=== PATIENT | male | born 1970 | race Hispanic/Latino ===

== ENCOUNTER 2017-08-28 10:41 | Emergency (ER) | payer OTHER ==
[2017-08-28 10:41] VITALS: BMI 35.9
[2017-08-28 10:47] VITALS: RESP 20; O2SAT 95
--- NOTE | 2017-08-28 12:01 | CT ---
PROCEDURE: CT Abdomen and Pelvis without intravenous contrast HISTORY: Bilateral flank pain COMPARISON: 09/24/2015. TECHNIQUE: CT scan of the abdomen and pelvis was performed without administration of intravenous contrast. Oral contrast was not administered. Coronal and sagittal reformatted images were obtained. Radiation dose: Total exam DLP = 1174.44 mGy-cm. This CT exam was performed using one or more of the following dose reduction techniques: Automated exposure control, adjustment of the mA and/or kV according to patient size, and/or use of iterative reconstruction technique. FINDINGS: LOWER THORAX: There is dependent atelectasis in the lung bases and mild paraseptal emphysema. LIVER: Normal in size. No gross lesion or ductal dilatation. GALLBLADDER AND BILE DUCTS: Surgically absent. PANCREAS: Normal in size. No gross lesion or ductal dilatation. SPLEEN: Borderline splenomegaly. ADRENALS: No discrete nodule in the right adrenal gland. Stable 2.4 cm adenoma in the left adrenal gland. KIDNEYS AND URETERS: Both kidneys are normal in size without nephrolithiasis or hydronephrosis. VASCULATURE: No aortic aneurysm. BOWEL: The small bowel loops are normal in caliber. There is mild sigmoid diverticulosis without CT evidence for acute diverticulitis. No bowel dilatation or obstruction. APPENDIX: Normal appendix. PERITONEUM: No free fluid. No free air. LYMPH NODES: No enlarged lymph nodes. BLADDER: Decompressed. REPRODUCTIVE: Unremarkable. BONES: No acute fracture. Within normal limits for the patient's age. OTHER FINDINGS: There are bilateral small fat containing inguinal hernias. There is a small sliding hiatal hernia. IMPRESSION: 1. No evidence of hydronephrosis, nephrolithiasis or obstructive uropathy. 2. Mild sigmoid diverticulosis without CT evidence for acute diverticulitis.
[2017-08-28 12:07] LABS: BASO # 0.1 K/uL (0.0-0.2); BASO % 0.6 % (0.0-2.0); EOS % 0.3 % (0.0-4.0); HEMOGLOBIN 15.7 g/dL (12.0-18.0); LYMPH # 1.7 K/uL (1.0-4.3); LYMPH % 11.3 % (20.0-40.0); MEAN CELL VOLUME 89.4 fl (80.0-94.0); MEAN CORPUSCULAR HEMOGLOBIN 30.4 pg (27.0-31.0); MEAN PLATELET VOLUME 8.5 fl (7.2-11.7); MONO # 1.5 K/uL (0.0-0.8); MONO % 10.4 % (0.0-10.0); NEUT # 11.3 K/uL (1.8-7.0); NEUT % 77.4 % (50.0-75.0); NRBC % 0.1 % (0.0-0.0); RBC 5.18 Mil/uL (4.40-5.90); RED CELL DISTRIBUTION WIDTH 13.2 % (11.5-14.5); WHITE BLOOD COUNT 14.6 K/uL (4.8-10.8)
[2017-08-28] MEDS: Sodium Chloride 0.9% 1,000 ML IV STA (12:16)
[2017-08-28 12:22] LABS: ALB/GLOB RATIO 1.2 (1.0-2.1); ALBUMIN 4.5 g/dL (3.5-5.0); ALT/SGPT 62 U/L (21-72); AST/SGOT 40 U/L (17-59); BLOOD UREA NITROGEN 16 mg/dl (9-20); CALCIUM 9.3 mg/dL (8.4-10.2); GFR AFRICAN-AMERICAN > 60; GFR NON-AFRICAN AMERICAN > 60
[2017-08-28 13:12] LABS: SQUAMOUS EPITHIAL 1 /hpf (0-5); URINE BACTERIA FEW (<OCC); URINE BILIRUBIN NEGATIVE (NEGATIVE); URINE BLOOD LARGE (NEGATIVE); URINE CLARITY TURBID (Clear); URINE COLOR YELLOW (YELLOW); URINE GLUCOSE (UA) NEG (Normal); URINE LEUKOCYTE ESTERASE LARGE Leu/uL (Negative); URINE NITRATE POSITIVE (NEGATIVE); URINE PROTEIN 100 mg/dL (NEGATIVE); URINE UROBILINOGEN 0.2-1.0 mg/dL (0.2-1.0); WBC CLUMPS MANY /hpf
[2017-08-28] MEDS ORDERED: cefTRIAXone (Rocephin) 1 gm Inj ONE (13:49)
--- NOTE | 2017-08-28 14:27 | ED PDOC ---
HPI: Back Time Seen by Provider: 08/28/17 11:05 Chief Complaint (Nursing): Back Pain Chief Complaint (Provider): flank pain History Per: Patient History/Exam Limitations: no limitations Additional Complaint(s): 47yo M in ED fore mary of right flank pain intermittent x many months but worsened in past month prompting his ED visit. notes dysuria urinary freq/ urgency and dark color with burning. also admit o to mild abdominal pain Past Medical History Reviewed: Historical Data, Nursing Documentation, Vital Signs Vital Signs: Last Vital Signs Temp 100.7 F H 08/28/17 10:45 Pulse 107 H 08/28/17 10:45 Resp 20 08/28/17 10:45 BP 146/100 H 08/28/17 10:45 Pulse Ox 95 08/28/17 10:45 - Medical History PMH: Back Problems, HIV, HTN, Hypercholesterolemia Denies: Chronic Kidney Disease - Family History Family History: States: No Known Family Hx - Home Medications Home Medications: Ambulatory Orders Medication Instructions Recorded Aspirin [Aspirin Chewable] 81 mg PO DAILY #30 chew 07/28/16 Famotidine [Pepcid] 20 mg PO BID #60 tab 07/28/16 Lisinopril [Zestril] 20 mg PO DAILY #30 tab 07/28/16 Rosuvastatin Calcium [Crestor] 5 mg PO DAILY #30 tablet 07/28/16 Clindamycin [Cleocin] 300 mg PO TID #30 cap 08/28/17 - Allergies Allergies/Adverse Reactions: Allergies Allergy/AdvReac Type Severity Reaction Status Date / Time No Known Allergies Allergy Verified 03/28/16 13:36 Review of Systems ROS Statement: Except As Marked, All Systems Reviewed And Found Negative Constitutional: Positive for: Fever, Chills Gastrointestinal: Positive for: Abdominal Pain Musculoskeletal: Positive for: Back Pain Physical Exam - Reviewed Nursing Documentation Reviewed: Yes Vital Signs Reviewed: Yes - Physical Exam Appears: Positive for: Non-toxic, No Acute Distress, Uncomfortable Skin: Positive for: Normal Color, Warm, DRY Cardiovascular/Chest: Positive for: Regular Rate, Rhythm Respiratory: Positive for: CNT, Normal Breath Sounds Gastrointestinal/Abdominal: Positive for: Bowel Sounds, Soft, Tenderness (mild suprapubic) Back: Positive for: R CVA Tenderness Neurologic/Psych: Positive for: Alert, Oriented - Laboratory Results Result Diagrams: 08/28/17 12:00 08/28/17 12:00 - ECG O2 Sat by Pulse Oximetry: 95 - CT Scan/US ct scan Other Rad Studies (CT/US): Radiology Report Reviewed - Progress ED Course And Treament: Orders impression: Renal stone. Category Date Time Status ABD & PELVIS W/O PO OR IV CONT [CT] Stat CT 08/28/17 11:04 Completed COMP METABOLIC PANEL Stat Chem 08/28/17 12:00 Completed CBC (WITH DIFFERENTIAL) Stat KAVITA 08/28/17 12:00 Completed CHLAMYDIA/GC RNA,TMA Stat Lab 08/28/17 13:21 Ordered Ketorolac [Toradol] Med 08/28/17 12:08 Discontinued 30 mg .ROUTE .STK-MED ONE Ketorolac [Toradol] Med 08/28/17 11:04 Discontinued 30 mg IVP STAT STA Ondansetron [Zofran Inj] Med 08/28/17 12:08 Discontinued 4 mg .ROUTE .STK-MED ONE Ondansetron [Zofran Inj] Med 08/28/17 11:04 Discontinued 4 mg IVP STAT STA Sodium Chloride 0.9% 1,000 ml Med 08/28/17 11:04 Discontinued IV 1,000 mls/hr cefTRIAXone [Rocephin] Med 08/28/17 13:49 Discontinued 1 gm .ROUTE .STK-MED ONE cefTRIAXone [Rocephin] 1 gm Med 08/28/17 13:20 Discontinued Sodium Chloride 0.9% 100 ml IVPB STAT URINE CULTURE Stat Micro 08/28/17 12:50 Received IV Insertion (Saline Lock) ONCE NURSING 08/28/17 11:04 Active URINALYSIS Stat URINALYSIS 08/28/17 12:50 Completed Re-evaluation Time: 14:28 Condition: Improved Medical Decision Making Medical Decision Making: pt on labs shows pylonephritis given IV abx in ED and will be d/c with clindamycin with immediate f/u with pmd VS improved pt looks well. Disposition - Clinical Impression Clinical Impression: Pyelonephritis, Screen for STD (sexually transmitted disease) - Patient ED Disposition Is Patient to be Admitted: No Counseled Patient/Family Regarding: Studies Performed, Diagnosis, Need For Followup, Rx Given - Disposition Disposition: Routine/Home Disposition Time: 14:34 Condition: STABLE Prescriptions: Clindamycin [Cleocin] 300 mg PO TID #30 cap Instructions: Urinary Tract Infection in Men (GEN)
[2017-08-28 15:17] VITALS: BP 150/88; PULSE 85; TEMP 98.8
== END 2017-08-28 15:37 | disposition home or self-care (01) ==
LOC: H.ER 10:41
DX: N39.0 Urinary tract infection, site not specified (principal); N10 Acute pyelonephritis; Z11.3 Encounter for screening for infections with a predominantly sexual mode of transmission
CPT/HCPCS: 74176; 80053; 81003; 85025; 87086; 87181; 87491; 87591; 96361; 96365; 96375; 99283; J0696; J1885; J2405; J7040

== ENCOUNTER 2017-09-19 19:04 | Inpatient (IN) | payer SELFPAY, MEDICAID ==
[2017-09-19 19:04] VITALS: BMI 35.9
[2017-09-19] MEDS ORDERED: Sodium Chloride 0.9% 1,000 ML IV STA ×2 (20:02→22:04)
--- NOTE | 2017-09-19 20:30 | ED PDOC ---
HPI: Back Time Seen by Provider: 09/19/17 19:54 Chief Complaint (Nursing): Fever History Per: Patient History/Exam Limitations: no limitations Onset/Duration Of Symptoms: Days Current Symptoms Are (Timing): Still Present Severity: Moderate Additional Complaint(s): Hx of HTN, HLD, pyelonephriits p/w back pain, fever, dysuria x 3 day. Patient states he finished a course of clindamycin yesterday but the fevers and back pain are persisting, as well as the dysuria. States it feels similarly to prior kidney infections. Past Medical History Vital Signs: Last Vital Signs Temp 102.2 F H 09/19/17 19:46 Pulse 117 H 09/19/17 19:46 Resp 20 09/19/17 19:46 BP 190/109 H 09/19/17 19:46 Pulse Ox 98 09/19/17 19:46 - Medical History PMH: Back Problems, HIV, HTN, Hypercholesterolemia Denies: Chronic Kidney Disease - Family History Family History: States: Unknown Family Hx - Home Medications Home Medications: Ambulatory Orders Medication Instructions Recorded Famotidine [Pepcid] 20 mg PO BID #60 tab 07/28/16 Lisinopril [Zestril] 20 mg PO DAILY #30 tab 07/28/16 Rosuvastatin Calcium [Crestor] 5 mg PO DAILY #30 tablet 07/28/16 - Allergies Allergies/Adverse Reactions: Allergies Allergy/AdvReac Type Severity Reaction Status Date / Time No Known Allergies Allergy Verified 03/28/16 13:36 Review of Systems ROS Statement: Except As Marked, All Systems Reviewed And Found Negative Constitutional: Positive for: Fever, Chills Gastrointestinal: Positive for: Nausea Genitourinary Male: Positive for: Dysuria Musculoskeletal: Positive for: Back Pain Physical Exam - Reviewed Nursing Documentation Reviewed: Yes Vital Signs Reviewed: Yes - Physical Exam Appears: Positive for: Well, Non-toxic, No Acute Distress Head Exam: Positive for: ATRAUMATIC, NORMAL INSPECTION, NORMOCEPHALIC Skin: Positive for: Normal Color, Warm, DRY Eye Exam: Positive for: EOMI, Normal appearance, PERRL ENT: Positive for: Normal ENT Inspection Neck: Positive for: Normal, Painless ROM Cardiovascular/Chest: Positive for: Regular Rate, Rhythm Respiratory: Positive for: CNT, Normal Breath Sounds Gastrointestinal/Abdominal: Positive for: Normal Exam, Bowel Sounds, Soft Back: Positive for: L CVA Tenderness, R CVA Tenderness Extremity: Positive for: Normal ROM Neurologic/Psych: Positive for: Alert, Oriented - Laboratory Results Result Diagrams: 09/19/17 20:32 09/19/17 20:32 - ECG O2 Sat by Pulse Oximetry: 98 Pulse Ox Interpretation: Normal Medical Decision Making Medical Decision Making: A/P: Pt. w/ hx of HTN, HLD, pyelo p/w fever and back pain -Patient just finished course of clinda and is still febrile with pain, is now outpatient failure of treatment for pyelo -will get labs, fliuds, septic workup -CT A/P w/ contrast to eval for pyelo -will require inpatient admission given patient failed outpatient ABx therapy and has signs of sepsis Time: 22:42 CT A/P with Contrast FINDINGS: Lower thorax: No acute findings. ABDOMEN: Liver: Fatty infiltration. Gallbladder and bile ducts: Cholecystectomy. No significant ductal dilation. Pancreas: No ductal dilation. No mass. Spleen: No splenomegaly. Adrenals: Stable appearance of adrenal glands. Kidneys and ureters: Too small to characterize lesion within RIGHT kidney. No hydronephrosis. Stomach and bowel: Scattered diverticula within colon. No associated inflammatory stranding. No definite mural thickening. No obstruction. Appendix: Normal caliber. No inflammation. PELVIS: Bladder: Unremarkable. Reproductive: Unremarkable as visualized. ABDOMEN and PELVIS: Intraperitoneal space: No significant fluid collection. No free air. Bones/joints: No acute fracture. Soft tissues: Small LEFT inguinal hernia containing fat. Tiny umbilical hernia containing fat. Vasculature: Unremarkable. No aneurysm. Lymph nodes: No pathologically enlarged lymph nodes. IMPRESSION: 1. Diverticulosis without definite CT evidence of diverticulitis. 2. Incidental/non-acute findings are described above 2200 Patient with outpatient failure of UTI. Will admit for sepsis, UTI, and outpatient ABx failure. Dr. Magaña reports patient also has a hx of HIV. Disposition - Clinical Impression Clinical Impression: Fever, UTI (urinary tract infection), Sepsis - Patient ED Disposition Is Patient to be Admitted: Yes - Disposition Disposition Time: 22:00 Condition: SERIOUS
[2017-09-19 20:44] LABS: BASO # 0.1 K/uL (0.0-0.2); BASO % 0.8 % (0.0-2.0); EOS % 0.1 % (0.0-4.0); HEMOGLOBIN 15.1 g/dL (12.0-18.0); LYMPH # 1.4 K/uL (1.0-4.3); LYMPH % 7.8 % (20.0-40.0); MEAN CELL VOLUME 90.2 fl (80.0-94.0); MEAN CORPUSCULAR HEMOGLOBIN 29.8 pg (27.0-31.0); MEAN CORPUSCULAR HGB CONC 33.1 g/dL (33.0-37.0); MEAN PLATELET VOLUME 8.9 fl (7.2-11.7); MONO # 1.4 K/uL (0.0-0.8); MONO % 7.7 % (0.0-10.0); NEUT # 15.3 K/uL (1.8-7.0); NEUT % 83.6 % (50.0-75.0); NRBC % 0.1 % (0.0-0.0); PLATELET COUNT 185 K/uL (130-400); RBC 5.06 Mil/uL (4.40-5.90); WHITE BLOOD COUNT 18.4 K/uL (4.8-10.8)
[2017-09-19 21:10] LABS: VENOUS BLOOD GAS PCO2 38 mmHg (40-60); VENOUS BLOOD GAS PO2 60 mm/Hg (30-55); VENOUS BLOOD PH 7.43 (7.32-7.43)
[2017-09-19 21:11] LABS: ALB/GLOB RATIO 1.3 (1.0-2.1); ALBUMIN 4.3 g/dL (3.5-5.0); ALT/SGPT 72 U/L (21-72); AST/SGOT 50 U/L (17-59); BLOOD UREA NITROGEN 14 mg/dl (9-20); CALCIUM 9.4 mg/dL (8.4-10.2); GFR AFRICAN-AMERICAN > 60; GFR NON-AFRICAN AMERICAN > 60; LIPASE 89 U/L (23-300)
[2017-09-19 21:19] LABS: SQUAMOUS EPITHIAL < 1 /hpf (0-5); URINE BILIRUBIN NEGATIVE (NEGATIVE); URINE BLOOD SMALL (NEGATIVE); URINE CLARITY CLOUDY (Clear); URINE COLOR YELLOW (YELLOW); URINE GLUCOSE (UA) NEG (Normal); URINE HYALINE CAST 0-2 /hpf (0-2); URINE LEUKOCYTE ESTERASE TRACE Leu/uL (Negative); URINE NITRATE NEGATIVE (NEGATIVE); URINE PROTEIN 100 mg/dL (NEGATIVE); URINE UROBILINOGEN 0.2-1.0 mg/dL (0.2-1.0)
[2017-09-19] MEDS ORDERED: levoFLOXacin 750 mg in D5W 150 ML BAG IVPB STA (21:28)
[2017-09-19 21:36] LABS: BANDS 3 % (0-2); BASOPHIL 1 % (0-2); LYMPHOCYTE 11 % (20-50); MONOCYTE 8 % (0-10); NEUTROPHIL 77 % (42-75); PLATELET ESTIMATE NORMAL (NORMAL); TOTAL CELLS COUNTED 100
[2017-09-19 21:37] LABS: HYPOCHROMIC SLIGHT; LARGE PLATELETS PRESENT
[2017-09-19] MEDS ORDERED: levoFLOXacin 750 mg in D5W 750 MG/150 ML BAG IVPB STA (21:41)
[2017-09-19] MEDS ORDERED: Sodium Chloride 0.9% 50 ML IV ONE (22:09)
[2017-09-19] MEDS ORDERED: Iohexol 300 100 ML IJ ONE (22:09)
[2017-09-19] MEDS ORDERED: levoFLOXacin 750 mg in D5W 750 MG/150 ML BAG IVPB ONE (22:37)
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
[2017-09-20] MEDS ORDERED: Influenza Vaccine 18yr & older 0.5 ML/45 MCG SYR IM ONE (02:59)
[2017-09-20] MEDS: Piperacillin/Tazobact 3.375 GM in Sodium Chloride 0.9% 50 ML IVPB SCH ×4 (05:14→21:37)
[2017-09-20 06:19] LABS: ALB/GLOB RATIO 1.2 (1.0-2.1); ALBUMIN 4.1 g/dL (3.5-5.0); ALT/SGPT 60 U/L (21-72); AST/SGOT 44 U/L (17-59); BLOOD UREA NITROGEN 11 mg/dl (9-20); GFR AFRICAN-AMERICAN > 60; GFR NON-AFRICAN AMERICAN > 60
[2017-09-20 06:27] LABS: BASO % 0.2 % (0.0-2.0); EOS # 0.1 K/uL (0.0-0.7); EOS % 0.5 % (0.0-4.0); HEMOGLOBIN 15.4 g/dL (12.0-18.0); LYMPH # 1.3 K/uL (1.0-4.3); LYMPH % 9.4 % (20.0-40.0); MEAN CELL VOLUME 89.4 fl (80.0-94.0); MEAN CORPUSCULAR HEMOGLOBIN 30.3 pg (27.0-31.0); MEAN CORPUSCULAR HGB CONC 33.9 g/dL (33.0-37.0); MEAN PLATELET VOLUME 9.4 fl (7.2-11.7); MONO # 1.6 K/uL (0.0-0.8); NEUT # 11.3 K/uL (1.8-7.0); NEUT % 78.9 % (50.0-75.0); NRBC % 0.1 % (0.0-0.0); RBC 5.07 Mil/uL (4.40-5.90); RED CELL DISTRIBUTION WIDTH 14.1 % (11.5-14.5); WHITE BLOOD COUNT 14.3 K/uL (4.8-10.8)
[2017-09-20] MEDS ORDERED: Pneumococcal 23-Valent Vaccine IM ONE (06:30)
--- NOTE | 2017-09-20 11:19 | CARD ---
APPROVED REPORT EKG Measurement Heart [id number] <Conclusion> Sinus tachycardia with 1st degree AV block T wave abnormality, consider inferior ischemia Abnormal ECG
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
[2017-09-20] MEDS: Enoxaparin 40 mg Syringe SC SCH (12:10)
--- NOTE | 2017-09-20 13:22 | CP.PCM.PN ---
Subjective - Date & Time of Evaluation Date of Evaluation: 09/20/17 Time of Evaluation: 09:00 - Subjective Subjective: Pt seen and examined at bedside this AM. He was observed ambulating from the restroom to his bed. He states significant improvement his in symptoms. Decreased flank pain; Denies: cp/sob/n/v He states slight headache that his sharp in character. He reports headaches from frontal to occipital, described as nails to a coffin, 8/10, intermittent, blurred vision and bilateral lower extremity numbness. The neighboring patient reported that Charles will stop breathing for about one minute at night and suddenly awakens. No known official diagnosis. Objective - Vital Signs/Intake and Output Vital Signs (last 24 hours): Temp Pulse Resp BP Pulse Ox 98.5 F 92 H 18 153/91 H 97 09/20/17 12:00 09/20/17 12:00 09/20/17 12:00 09/20/17 12:00 09/20/17 12:00 - Medications Medications: Current Medications Acetaminophen (Tylenol 325mg Tab) 650 mg PO Q6 PRN PRN Reason: Fever >100.4 F Acetaminophen (Tylenol 325mg Tab) 650 mg PO Q6 PRN PRN Reason: Pain, Mild (1-3) Last Admin: 09/20/17 05:13 Dose: 650 mg Atorvastatin Calcium (Lipitor) 10 mg PO DAILY [facility] Last Admin: 09/20/17 08:30 Dose: 10 mg Enoxaparin Sodium (Lovenox) 40 mg SC DAILY [facility] PRN Reason: Protocol Last Admin: 09/20/17 12:10 Dose: 40 mg Hydromorphone HCl (Dilaudid) 0.5 mg IVP Q6H PRN PRN Reason: Pain, severe (8-10) Piperacillin Sod/Tazobactam (Sod 3.375 gm/ Sodium Chloride) 50 mls @ 50 mls/hr IVPB Q6 [facility] PRN Reason: Protocol Last Admin: 09/20/17 12:11 Dose: 50 mls/hr Ketorolac Tromethamine (Toradol) 30 mg IVP Q6 PRN PRN Reason: Pain, moderate (4-7) Last Admin: 09/20/17 12:06 Dose: 30 mg Lisinopril (Zestril) 20 mg PO DAILY [facility] Last Admin: 09/20/17 08:29 Dose: 20 mg Lisinopril (Zestril) 5 mg PO ONCE [facility] Ondansetron HCl (Zofran Inj) 4 mg IVP Q6 PRN PRN Reason: Nausea/Vomiting - Labs Labs: 09/20/17 04:52 09/20/17 04:52 - Constitutional Appears: Well, No Acute Distress - Head Exam Additional comments: Alopecia - Eye Exam Eye Exam: EOMI, Normal appearance - Neck Exam Neck Exam: Full ROM - Respiratory Exam Respiratory Exam: Clear to Ausculation Bilateral, NORMAL BREATHING PATTERN - Cardiovascular Exam Cardiovascular Exam: REGULAR RHYTHM, +S1, +S2 - GI/Abdominal Exam GI & Abdominal Exam: Soft, Normal Bowel Sounds - Extremities Exam Extremities Exam: Full ROM - Back Exam Back Exam: CVA tenderness (L). absent: CVA tenderness (R) - Neurological Exam Neurological Exam: Alert, Awake, CN II-XII Intact, Oriented x3. absent: Normal Gait Additional comments: chronic peripheral neuropathy altering his gait but ambulating without trouble. - Psychiatric Exam Psychiatric exam: Normal Affect, Normal Mood Assessment and Plan - Assessment and Plan (Free Text) Plan: 47 yo M with pmhx of HLD, GERD, peripheral neuropathy, hiv presented with pyelonephritis. 1) Pyelonephritis -persistent symptoms for the last 3 days, fever (resolved), dysuria (resolved), CVAT -recent UTI 05/19/18 treated with clindamycin; denies previous history of UTI or prostate abnormalities -Urine cx 05/19/18 Ecoli sensitive to Zosyn, Meropenem, Macrobid -UA (09/20/2017) hematuria, leukocyturia, nitrate neg, LE trace -CT Abd: Kidneys and ureters: Too small to characterize lesion within RIGHT kidney. No hydronephrosis. Diverticulosis without definite CT evidence of diverticulitis. -will treat with Zosyn 3.375 IV Q6h considering it was sensitive last urine cx; will consider an appropriate PO route in the future. -s/p levaquin x 1 dose ED -f/u Urine cx, gc/chlamydia, gram stain. 2) Sepsis SIRS(fever, tachycardia, leukocytosis)+Urine positive -BVG Lactate 2.3, lactic acid 1.7 -s/p IV fluids NS 2 l -f/u CBC, CMP, Lactic Acid, blood cx, urine cx. 3) Headache -Sharp (nail) like sensation with blurred vision and lower extremity numbness -CT w/o of head: pending -Consider Toxoplasmosis, Cryptococus: pending 4) HTN - Elevated due to lapse with intake - Lisinopril 20 mg - Continue monitoring and may consider increase to 40 mg. 5) HIV -06/19/17 CD4 568, viral load 118 high -Hold HIV meds: Tivicay 50 MG Tablet 1 tablet Orally Once a day -Truvada 200- 300 MG Tablet 1 tablet Orally Once a day -Last visit clinic 08/28/17.pt sent to ED for UTI.seen in ED and treated with clindamycin. -f/u viral load and CD4 6) HLD -last lipid profile 06/2017 -continue lipitor 10mg 7) Obstructive Sleep Apnea -STOP ban/8: high risk of VINCENZO 8) Alopecia - Consider infectious etiology such as RPR 9) DVT Prophylaxis -Lovenox 40 mg sc daily f/u with Dr. Bradford (Paulie Degroot)
--- NOTE | 2017-09-20 17:07 | CT ---
PROCEDURE: CT HEAD WITHOUT CONTRAST. HISTORY: intense headache r/o pathology COMPARISON: None available. TECHNIQUE: Axial computed tomography images were obtained through the head/brain without intravenous contrast. Radiation dose: Total exam DLP = 932.11 mGy-cm. This CT exam was performed using one or more of the following dose reduction techniques: Automated exposure control, adjustment of the mA and/or kV according to patient size, and/or use of iterative reconstruction technique. FINDINGS: HEMORRHAGE: No intracranial hemorrhage. BRAIN: No mass effect or edema. Mild atrophy is noted. VENTRICLES: Unremarkable. No hydrocephalus. CALVARIUM: Unremarkable. PARANASAL SINUSES: Unremarkable as visualized. No significant inflammatory changes. MASTOID AIR CELLS: Unremarkable as visualized. No inflammatory changes. OTHER FINDINGS: None. IMPRESSION: No evidence of acute intracranial hemorrhage intracranial collection mass effect or midline shift. Mild volume loss and mildly dilated extra-axial space more prominent at the frontal temporal region.
[2017-09-21] MEDS: Piperacillin/Tazobact 3.375 GM in Sodium Chloride 0.9% 50 ML IVPB SCH ×2 (04:15→09:36)
[2017-09-21 07:47] LABS: HEMOGLOBIN 15.5 g/dL (12.0-18.0); MEAN CELL VOLUME 91.4 fl (80.0-94.0); MEAN CORPUSCULAR HEMOGLOBIN 30.4 pg (27.0-31.0); MEAN CORPUSCULAR HGB CONC 33.3 g/dL (33.0-37.0); RBC 5.1 Mil/uL (4.40-5.90); RED CELL DISTRIBUTION WIDTH 14.4 % (11.5-14.5); WHITE BLOOD COUNT 17.3 K/uL (4.8-10.8)
[2017-09-21 08:23] LABS: BLOOD UREA NITROGEN 16 mg/dl (9-20); CALCIUM 9.4 mg/dL (8.4-10.2); GFR AFRICAN-AMERICAN > 60; GFR NON-AFRICAN AMERICAN > 60
[2017-09-21] MEDS: Enoxaparin 40 mg Syringe SC SCH (09:36)
--- NOTE | 2017-09-21 12:24 | CP.PCM.PN ---
Subjective - Date & Time of Evaluation Date of Evaluation: 09/21/17 Time of Evaluation: 09:30 - Subjective Subjective: Pt seen and evaluated at bedside. Initially appeared comfortable in supine position, and transitioned comfortably to seated position. States return of headache overnight, for which Tylenol did not alleviate his pain. Otherwise, he denies fevers/chills, vomiting, diarrhea, hematuria, dysuria, urinary frequency or incontinence. He also denies chest pain, SOB, dyspnea, cough, or abdominal pain. Objective - Vital Signs/Intake and Output Vital Signs (last 24 hours): Temp Pulse Resp BP Pulse Ox 98.3 F 90 17 146/93 H 97 09/21/17 12:16 09/21/17 12:16 09/21/17 12:16 09/21/17 12:16 09/21/17 12:16 - Medications Medications: Current Medications Acetaminophen (Tylenol 325mg Tab) 650 mg PO Q6 PRN PRN Reason: Fever >100.4 F Last Admin: 09/20/17 18:44 Dose: 325 mg Acetaminophen (Tylenol 325mg Tab) 650 mg PO Q6 PRN PRN Reason: Pain, Mild (1-3) Last Admin: 09/20/17 05:13 Dose: 650 mg Atorvastatin Calcium (Lipitor) 10 mg PO DAILY [facility] Last Admin: 09/21/17 09:35 Dose: 10 mg Enoxaparin Sodium (Lovenox) 40 mg SC DAILY [facility] PRN Reason: Protocol Last Admin: 09/21/17 09:36 Dose: 40 mg Hydromorphone HCl (Dilaudid) 0.5 mg IVP Q6H PRN PRN Reason: Pain, severe (8-10) Piperacillin Sod/Tazobactam (Sod 3.375 gm/ Sodium Chloride) 100 mls @ 100 mls/ hr IVPB Q6 [facility] PRN Reason: Protocol Ketorolac Tromethamine (Toradol) 30 mg IVP Q6 PRN PRN Reason: Pain, moderate (4-7) Last Admin: 09/21/17 04:17 Dose: 30 mg Lisinopril (Zestril) 20 mg PO DAILY [facility] Last Admin: 09/21/17 09:35 Dose: 20 mg Lisinopril (Zestril) 5 mg PO ONCE [facility] Ondansetron HCl (Zofran Inj) 4 mg IVP Q6 PRN PRN Reason: Nausea/Vomiting - Labs Labs: 09/21/17 06:30 09/21/17 06:30 - Additional Findings Additional findings: - Constitutional Appears: Well, No Acute Distress - Eye Exam Eye Exam: EOMI, Normal appearance - Neck Exam Neck Exam: Full ROM. Absent: Brudzinski's Sign - Respiratory Exam Respiratory Exam: Clear to Ausculation Bilateral, NORMAL BREATHING PATTERN - Cardiovascular Exam Cardiovascular Exam: REGULAR RHYTHM, +S1, +S2 - GI/Abdominal Exam GI & Abdominal Exam: Soft, Normal Bowel Sounds - Extremities Exam Extremities Exam: Full ROM - Back Exam Back Exam: CVA tenderness (L). absent: CVA tenderness (R) - Psychiatric Exam Psychiatric exam: Normal Affect, Normal Mood Assessment and Plan - Assessment and Plan (Free Text) Plan: 47 yo M w PMHx of HIV, HLD, and GERD is admitted due to pyelonephritis 1) Pyelonephritis -symptoms present, but improving over last 4 days; fever-spike last night of 101.7F, and R CVA -will treat with Zosyn 3.375 IV Q6h considering it was sensitive last urine cx; will consider an appropriate PO route in the future. -UA (09/20/2017) hematuria, leukocyturia, nitrate neg, LE trace -f/u Vitals, s/s of pyelo, Urine cx, gc/chlamydia, gram stain. 2) Headache -Sharp (nail) like sensation with blurred vision and lower extremity numbness -CTH: No evidence of acute intracranial hemorrhage intracranial collection mass effect or midline shift. -Pain resolves when blood pressures are controlled. 3) HTN -Elevated due to lapse with intake -Lisinopril 20 mg -Continue monitoring and may consider increase to 40 mg. 4) HIV -06/19/17 CD4 568, viral load 118 high -Obtained meds from pharmacy: --Tivicay 50 MG Tablet 1 tablet Orally Once a day --Truvada 200-300 MG Tablet 1 tablet Orally Once a day -f/u viral load and CD4 5) HLD -Lipitor 10mg 6) Obstructive Sleep Apnea -STOP ban/8: high risk of VINCENZO 7) Alopecia - Consider infectious etiology such as RPR 8) Sepsis -Resolved; presently no fever. 9) DVT Prophylaxis -Lovenox 40 mg sc daily
[2017-09-21 16:56] LABS: % CD4 (T HELPER CELL) 30 Percent (30-61); % CD8 (SUPPRESSOR T CELL) 40 Percent (12-42); ABSOLUTE CD4 CELLS 333 Cells/mcL (490-1740); ABSOLUTE CD8 CELLS 438 Cells/mcL (180-1170); ABSOLUTE LYMPHOCYTES 1104 Cells/mcL (850-3900); HELPER/SUPPRESSOR RATIO 0.76 Ratio (0.86-5.00)
[2017-09-21] MEDS: Piperacillin/Tazobact 3.375 GM in Sodium Chloride 0.9% 100 ML IVPB SCH ×2 (17:00→22:15)
[2017-09-22 00:15] VITALS: RESP 18
[2017-09-22] MEDS: Piperacillin/Tazobact 3.375 GM in Sodium Chloride 0.9% 100 ML IVPB SCH (04:15)
[2017-09-22 08:04] VITALS: BP 145/105; PULSE 74; TEMP 98.3; O2SAT 100
--- NOTE | 2017-09-22 08:19 | CP.PCM.PN ---
Subjective - Date & Time of Evaluation Date of Evaluation: 09/22/17 Time of Evaluation: 08:00 Objective - Vital Signs/Intake and Output Vital Signs (last 24 hours): Temp Pulse Resp BP Pulse Ox 98.3 F 74 18 145/105 H 100 09/22/17 08:00 09/22/17 08:00 09/22/17 08:00 09/22/17 08:00 09/22/17 08:00 - Medications Medications: Current Medications Acetaminophen (Tylenol 325mg Tab) 650 mg PO Q6 PRN PRN Reason: Fever >100.4 F Last Admin: 09/20/17 18:44 Dose: 325 mg Acetaminophen (Tylenol 325mg Tab) 650 mg PO Q6 PRN PRN Reason: Pain, Mild (1-3) Last Admin: 09/20/17 05:13 Dose: 650 mg Amlodipine Besylate (Norvasc) 5 mg PO DAILY [facility] Last Admin: 09/21/17 13:01 Dose: 5 mg Atorvastatin Calcium (Lipitor) 10 mg PO DAILY [facility] Last Admin: 09/21/17 09:35 Dose: 10 mg Enoxaparin Sodium (Lovenox) 40 mg SC DAILY [facility] PRN Reason: Protocol Last Admin: 09/21/17 09:36 Dose: 40 mg Hydromorphone HCl (Dilaudid) 0.5 mg IVP Q6H PRN PRN Reason: Pain, severe (8-10) Piperacillin Sod/Tazobactam (Sod 3.375 gm/ Sodium Chloride) 100 mls @ 100 mls/ hr IVPB Q6 [facility] PRN Reason: Protocol Last Admin: 09/22/17 04:15 Dose: 100 mls/hr Ketorolac Tromethamine (Toradol) 30 mg IVP Q6 PRN PRN Reason: Pain, moderate (4-7) Last Admin: 09/21/17 22:14 Dose: 30 mg Lisinopril (Zestril) 20 mg PO DAILY [facility] Last Admin: 09/21/17 09:35 Dose: 20 mg Ondansetron HCl (Zofran Inj) 4 mg IVP Q6 PRN PRN Reason: Nausea/Vomiting - Labs Labs: 09/21/17 06:30 09/21/17 06:30
[2017-09-22 08:50] LABS: HEMOGLOBIN 15.4 g/dL (12.0-18.0); MEAN CELL VOLUME 90.7 fl (80.0-94.0); MEAN CORPUSCULAR HEMOGLOBIN 30.6 pg (27.0-31.0); MEAN CORPUSCULAR HGB CONC 33.7 g/dL (33.0-37.0); RBC 5.03 Mil/uL (4.40-5.90); RED CELL DISTRIBUTION WIDTH 14.2 % (11.5-14.5); WHITE BLOOD COUNT 9.7 K/uL (4.8-10.8)
[2017-09-22] MEDS: Enoxaparin 40 mg Syringe SC SCH (09:53)
[2017-09-22 10:28] LABS: BLOOD UREA NITROGEN 18 mg/dl (9-20); CALCIUM 9.4 mg/dL (8.4-10.2); GFR AFRICAN-AMERICAN > 60; GFR NON-AFRICAN AMERICAN > 60
--- NOTE | 2017-09-22 12:36 | CP.PCM.DIS ---
Provider - Provider Date of Admission: 09/19/17 22:03 Attending physician: Sera Davila MD Time Spent in preparation of Discharge (in minutes): 25 Diagnosis - Discharge Diagnosis (1) Pyelonephritis Status: Acute Hospital Course - Lab Results Lab Results: Micro Results 09/19/17 20:32 Urine Urine Culture - Preliminary Escherichia Coli 09/19/17 20:32 Blood Blood Culture - Preliminary NO GROWTH AFTER 48 HOURS Most Recent Lab Values WBC 9.7 K/uL (4.8-10.8) 09/22/17 07:39 RBC 5.03 Mil/uL (4.40-5.90) 09/22/17 07:39 Hgb 15.4 g/dL (12.0-18.0) 09/22/17 07:39 Hct 45.6 % (35.0-51.0) 09/22/17 07:39 MCV 90.7 fl (80.0-94.0) 09/22/17 07:39 MCH 30.6 pg (27.0-31.0) 09/22/17 07:39 MCHC 33.7 g/dL (33.0-37.0) 09/22/17 07:39 RDW 14.2 % (11.5-14.5) 09/22/17 07:39 Plt Count 178 K/uL (130-400) 09/22/17 07:39 MPV 9.4 fl (7.2-11.7) 09/20/17 04:52 Neut % (Auto) 78.9 % (50.0-75.0) H 09/20/17 04:52 Lymph % (Auto) 9.4 % (20.0-40.0) L 09/20/17 04:52 Irwin % (Auto) 11.0 % (0.0-10.0) H 09/20/17 04:52 Eos % (Auto) 0.5 % (0.0-4.0) 09/20/17 04:52 Baso % (Auto) 0.2 % (0.0-2.0) 09/20/17 04:52 Neut # (Auto) 11.3 K/uL (1.8-7.0) H 09/20/17 04:52 Lymph # (Auto) 1.3 K/uL (1.0-4.3) 09/20/17 04:52 Irwin # (Auto) 1.6 K/uL (0.0-0.8) H 09/20/17 04:52 Eos # (Auto) 0.1 K/uL (0.0-0.7) 09/20/17 04:52 Baso # (Auto) 0.0 K/uL (0.0-0.2) 09/20/17 04:52 Neutrophils % (Manual) 77 % (42-75) H 09/19/17 20:32 Band Neutrophils % 3 % (0-2) H 09/19/17 20:32 Lymphocytes % (Manual) 11 % (20-50) L 09/19/17 20:32 Monocytes % (Manual) 8 % (0-10) 09/19/17 20:32 Basophils % (Manual) 1 % (0-2) 09/19/17 20:32 Platelet Estimate Normal (NORMAL) 09/19/17 20:32 Large Platelets Present 09/19/17 20:32 Hypochromasia (manual) Slight 09/19/17 20:32 pO2 60 mm/Hg (30-55) H 09/19/17 20:40 VBG pH 7.43 (7.32-7.43) 09/19/17 20:40 VBG pCO2 38 mmHg (40-60) L 09/19/17 20:40 VBG HCO3 25.5 mmol/L 09/19/17 20:40 VBG Total CO2 26.4 mmol/L (22-28) 09/19/17 20:40 VBG O2 Sat (Calc) 95.5 % (40-65) H 09/19/17 20:40 VBG Base Excess 1.0 mmol/L (0.0-2.0) 09/19/17 20:40 VBG Potassium 3.7 mmol/L (3.6-5.2) 09/19/17 20:40 Sodium 134.0 mmol/L (132-148) 09/19/17 20:40 Chloride 101.0 mmol/L (98-107) 09/19/17 20:40 Glucose 124 mg/dL (75-110) H 09/19/17 20:40 Lactate 2.3 mmol/L (0.7-2.1) H 09/19/17 20:40 FiO2 21.0 % 09/19/17 20:40 Sodium 143 mmol/l (132-148) 09/22/17 09:45 Potassium 3.8 MMOL/L (3.6-5.0) 09/22/17 09:45 Chloride 105 mmol/L (98-107) 09/22/17 09:45 Carbon Dioxide 25 mmol/L (22-30) 09/22/17 09:45 Anion Gap 17 (10-20) 09/22/17 09:45 BUN 18 mg/dl (9-20) 09/22/17 09:45 Creatinine 0.8 mg/dl (0.8-1.5) 09/22/17 09:45 Est GFR ( Amer) > 60 09/22/17 09:45 Est GFR (Non-Af Amer) > 60 09/22/17 09:45 Random Glucose 98 mg/dL (75-110) 09/22/17 09:45 Lactic Acid 1.0 MMOL/L (0.7-2.1) 09/20/17 04:52 Calcium 9.4 mg/dL (8.4-10.2) 09/22/17 09:45 Total Bilirubin 2.3 mg/dl (0.2-1.3) H 09/20/17 04:52 AST 44 U/L (17-59) 09/20/17 04:52 ALT 60 U/L (21-72) 09/20/17 04:52 Alkaline Phosphatase 93 U/L (38-126) 09/20/17 04:52 Total Protein 7.6 G/DL (6.3-8.2) 09/20/17 04:52 Albumin 4.1 g/dL (3.5-5.0) 09/20/17 04:52 Globulin 3.5 gm/dL (2.2-3.9) 09/20/17 04:52 Albumin/Globulin Ratio 1.2 (1.0-2.1) 09/20/17 04:52 Lipase 89 U/L (23-300) 09/19/17 20:32 Venous Blood Potassium 3.7 mmol/L (3.6-5.2) 09/19/17 20:40 Urine Color Yellow (YELLOW) 09/19/17 20:32 Urine Clarity Cloudy (Clear) 09/19/17 20:32 Urine pH 5.0 (5.0-8.0) 09/19/17 20:32 Ur Specific [place] 1.023 (1.003-1.030) 09/19/17 20:32 Urine Protein 100 mg/dL (NEGATIVE) 09/19/17 20:32 Urine Glucose (UA) Neg mg/dL (Normal) 09/19/17 20:32 Urine Ketones Negative mg/dL (NEGATIVE) 09/19/17 20:32 Urine Blood Small (NEGATIVE) 09/19/17 20:32 Urine Nitrate Negative (NEGATIVE) 09/19/17 20:32 Urine Bilirubin Negative (NEGATIVE) 09/19/17 20:32 Urine Urobilinogen 0.2-1.0 mg/dL (0.2-1.0) 09/19/17 20:32 Ur Leukocyte Esterase Trace Rhonda/uL (Negative) 09/19/17 20:32 Urine RBC (Auto) 4 /hpf (0-3) H 09/19/17 20:32 Urine Microscopic WBC 33 /hpf (0-5) H 09/19/17 20:32 Ur Squamous Epith Cells < 1 /hpf (0-5) 09/19/17 20:32 Hyaline Casts 0-2 /hpf (0-2) 09/19/17 20:32 Absolute Lymphs (Flow) 1104 Cells/mcL (850-3900) 09/20/17 06:31 % CD4 Cells 30 Percent (30-61) 09/20/17 06:31 Absolute CD4 Count 333 Cells/mcL (490-1740) L 09/20/17 06:31 T-Help/Suppress Ratio 0.76 Ratio (0.86-5.00) L 09/20/17 06:31 % CD8 Cells 40 Percent (12-42) 09/20/17 06:31 Absolute CD8 Count 438 Cells/mcL (180-1170) 09/20/17 06:31 C.trachomatis RNA (TMA) Not detected (Not Detected) 09/20/17 08:00 N.gonorrhoeae RNA (TMA) Not detected (Not Detected) 09/20/17 08:00 - Hospital Course Hospital Course: 47 yo M w PMHx of HIV, HLD, and GERD is admitted due to pyelonephritis. Stabilized and treated with IV Zosyn. Pt to follow up in clinic with both [facility] and at [facility] to establish consistency of treatment. Continue IV abx with same day surgery for 4 days. Discharge Exam - Head Exam Head Exam: ATRAUMATIC, NORMOCEPHALIC Discharge Plan - Discharge Medications Prescriptions: amLODIPine [Norvasc] 5 mg PO DAILY #30 tab Famotidine [Pepcid] 20 mg PO BID #60 tab Lisinopril [Zestril] 20 mg PO DAILY #30 tab Rosuvastatin Calcium [Crestor] 5 mg PO DAILY #30 tablet - Follow Up Plan Condition: SERIOUS Disposition: HOME/ ROUTINE Patient education suggested?: Yes Instructions: Urinary Tract Infection in Women (DC), Urinary Tract Infection in Men (DC), Dysuria (GEN), Hypertension (DC), Hypertension (GEN) Additional Instructions: follow up in clinic tomorrow and in [facility] for antibiotics. come to hospital and register for antibiotics. return to emergency room if symptoms recur. [phone] for clinic.
== END 2017-09-22 12:04 | disposition home or self-care (01) | DRG 714 ==
LOC: H.ER 19:04 → H.ERHOLD 22:03 → H.TEL 09-20 01:14
PROVIDERS: ADMIT Family Medicine Geriatric Medicine; ATTEND Family Medicine Geriatric Medicine
DX: A41.9 Sepsis, unspecified organism (principal); Z21 Asymptomatic human immunodeficiency virus [HIV] infection status; G62.9 Polyneuropathy, unspecified; N12 Tubulo-interstitial nephritis, not specified as acute or chronic; E78.00 Pure hypercholesterolemia, unspecified; E78.5 Hyperlipidemia, unspecified; I10 Essential (primary) hypertension; K21.9 Gastro-esophageal reflux disease without esophagitis; K57.90 Diverticulosis of intestine, part unspecified, without perforation or abscess without bleeding; Z79.899 Other long term (current) drug therapy; Z80.0 Family history of malignant neoplasm of digestive organs; Z82.49 Family history of ischemic heart disease and other diseases of the circulatory system; Z85.72 Personal history of non-Hodgkin lymphomas; Z87.891 Personal history of nicotine dependence; R00.0 Tachycardia, unspecified; R31.9 Hematuria, unspecified

== ENCOUNTER 2018-01-30 10:14 | Observation (INO) | payer MEDICAID, SELFPAY ==
[2018-01-30 10:22] VITALS: BMI 35.7
[2018-01-30] MEDS ORDERED: Sodium Chloride 0.9% 1,000 ML IV STA (10:38)
[2018-01-30 10:58] LABS: BASO % 0.4 % (0.0-2.0); EOS % 0.3 % (0.0-4.0); HEMOGLOBIN 17.2 g/dL (12.0-18.0); LYMPH # 0.4 K/uL (1.0-4.3); LYMPH % 3.5 % (20.0-40.0); MEAN CELL VOLUME 90.3 fl (80.0-94.0); MEAN CORPUSCULAR HEMOGLOBIN 30.8 pg (27.0-31.0); MEAN CORPUSCULAR HGB CONC 34.1 g/dL (33.0-37.0); MONO # 0.8 K/uL (0.0-0.8); MONO % 6.7 % (0.0-10.0); NEUT # 10.1 K/uL (1.8-7.0); NEUT % 89.1 % (50.0-75.0); NRBC % 0.4 % (0.0-0.0); PLATELET COUNT 170 K/uL (130-400); RBC 5.58 Mil/uL (4.40-5.90); RED CELL DISTRIBUTION WIDTH 13.4 % (11.5-14.5); WHITE BLOOD COUNT 11.3 K/uL (4.8-10.8)
[2018-01-30 11:01] LABS: GRANULAR CAST 1 /lpf (0-1); SQUAMOUS EPITHIAL 1 /hpf (0-5); URINE BACTERIA RARE (<OCC); URINE BILIRUBIN NEGATIVE (NEGATIVE); URINE BLOOD NEGATIVE (NEGATIVE); URINE CLARITY CLOUDY (Clear); URINE COLOR AMBER (YELLOW); URINE GLUCOSE (UA) NEG (Normal); URINE HYALINE CAST 0-2 /hpf (0-2); URINE LEUKOCYTE ESTERASE NEG Leu/uL (Negative); URINE PROTEIN >=500 mg/dL (NEGATIVE); URINE UROBILINOGEN 0.2-1.0 mg/dL (0.2-1.0)
[2018-01-30 11:09] LABS: ALB/GLOB RATIO 1.3 (1.0-2.1); ALBUMIN 4.2 g/dL (3.5-5.0); ALT/SGPT 42 U/L (21-72); AST/SGOT 38 U/L (17-59); BLOOD UREA NITROGEN 20 mg/dl (9-20); CALCIUM 8.8 mg/dL (8.4-10.2); GFR AFRICAN-AMERICAN > 60; GFR NON-AFRICAN AMERICAN > 60
[2018-01-30] MEDS ORDERED: Iohexol 300 100 ML IJ ONE (11:44)
[2018-01-30] MEDS ORDERED: Sodium Chloride 0.9% 50 ML IV ONE (11:45)
--- NOTE | 2018-01-30 12:16 | ED PDOC ---
HPI: General Adult Time Seen by Provider: 01/30/18 10:35 Chief Complaint (Nursing): Chest Pain Chief Complaint (Provider): chest and abd pain History Per: Patient, Limousine [employer], Other (clinic residents/ notes) Current Symptoms Are (Timing): Still Present Severity: Moderate Recently: Treated By A Physician (clinic) Additional Complaint(s): 47yo male c/o chest and abdominal pain, left sided, associated w nausea and loose stools, weakness. Saw PMD clinic and started on oral antibiotics for possible diverticulitis. Now states pain radiating into his left chest. Denies syncope, edema, orthopnea or cough. Past Medical History Reviewed: Historical Data, Nursing Documentation, Vital Signs Vital Signs: Last Vital Signs Temp 98.9 F 01/30/18 10:30 Pulse 103 H 01/30/18 10:30 Resp 16 01/30/18 10:30 BP 151/93 H 01/30/18 10:30 Pulse Ox 98 01/30/18 12:16 - Medical History PMH: Back Problems, Depression, HIV, HTN, Hypercholesterolemia Denies: Chronic Kidney Disease - Family History Family History: States: Unknown Family Hx - Home Medications Home Medications: Ambulatory Orders Medication Instructions Recorded Famotidine [Pepcid] 20 mg PO BID #60 tab 09/22/17 Lisinopril [Zestril] 20 mg PO DAILY #30 tab 09/22/17 Rosuvastatin Calcium [Crestor] 5 mg PO DAILY #30 tablet 09/22/17 amLODIPine [Norvasc] 5 mg PO DAILY #30 tab 09/22/17 - Allergies Allergies/Adverse Reactions: Allergies Allergy/AdvReac Type Severity Reaction Status Date / Time No Known Allergies Allergy Verified 09/23/17 10:35 Review of Systems Constitutional: Positive for: Chills, Malaise ENT: Negative for: Throat Pain Cardiovascular: Positive for: Chest Pain, Palpitations Respiratory: Negative for: Cough, Hemoptysis Gastrointestinal: Positive for: Nausea, Vomiting, Abdominal Pain. Negative for : Melena Genitourinary Male: Negative for: Dysuria Musculoskeletal: Positive for: Back Pain. Negative for: Neck Pain Skin: Negative for: Rash, Lesions, Jaundice Neurological: Positive for: Dizziness. Negative for: Weakness, Numbness, Change in Speech, Headache Psych: Negative for: Anxiety, Depression Physical Exam - Reviewed Nursing Documentation Reviewed: Yes Vital Signs Reviewed: Yes - Physical Exam Appears: Positive for: Well, Non-toxic, No Acute Distress Head Exam: Positive for: ATRAUMATIC, NORMAL INSPECTION, NORMOCEPHALIC Skin: Positive for: Normal Color, Warm, DRY Eye Exam: Positive for: EOMI, Normal appearance, PERRL ENT: Positive for: Normal ENT Inspection Neck: Positive for: Normal, Painless ROM Cardiovascular/Chest: Positive for: Regular Rate, Rhythm Respiratory: Positive for: CNT, Normal Breath Sounds Pulses-Radial (L): 3+/4+ Pulses-Radial (R): 3+/4+ Gastrointestinal/Abdominal: Positive for: Soft, Tenderness (L side). Negative for: Guarding Back: Positive for: Normal Inspection Extremity: Positive for: Normal ROM Neurologic/Psych: Positive for: Alert, Oriented - Laboratory Results Result Diagrams: 01/30/18 10:45 01/30/18 10:45 - ECG O2 Sat by Pulse Oximetry: 98 Medical Decision Making Medical Decision Making: clinic started flagyl/levaquin earlier in week for poss diverticulitis. CD4 stable per residents labs reviewed reveal WBC 11.3 w bandemia chem and UA unremarkable 1230p required moprhine 2mg for pain Disposition - Disposition Forms: [employer] ([place])
[2018-01-30 12:49] LABS: BANDS 14 % (0-2); LYMPHOCYTE 4 % (20-50); MONOCYTE 6 % (0-10); NEUTROPHIL 76 % (42-75); PLATELET ESTIMATE NORMAL (NORMAL); TOTAL CELLS COUNTED 100
--- NOTE | 2018-01-30 13:14 | CT ---
PROCEDURE: CT Chest, Abdomen and Pelvis with intravenous contrast HISTORY: L chest pain L flank pain COMPARISON: 09/24/2015 TECHNIQUE: IV dose administered: 98 cc Omnipaque 300 Radiation dose: Total exam DLP = 1533.64 mGy-cm. This CT exam was performed using one or more of the following dose reduction techniques: Automated exposure control, adjustment of the mA and/or kV according to patient size, and/or use of iterative reconstruction technique. FINDINGS: CT CHEST WITH CONTRAST: LUNGS: No MEDIASTINUM: Unremarkable. Normal caliber aorta and pulmonary arterial trunk. No aortic dissection. Normal size heart. LYMPH NODES: Unremarkable. PLEURA: Unremarkable. No pneumothorax. No pleural fluid. BONES: Unremarkable. OTHER FINDINGS: None. CT ABDOMEN AND PELVIS: LIVER: Hepatic steatosis. No focal masses. No intrahepatic bile duct dilatation or perihepatic ascites. GALLBLADDER AND BILE DUCTS: Status post cholecystectomy. No abnormality is seen in the gallbladder fossa. PANCREAS: Unremarkable. No gross lesion or ductal dilatation. SPLEEN: Unremarkable. ADRENALS: Stable enlargement of the left adrenal gland well-circumscribed 1.9 x 3.1 cm with mean Hounsfield unit values 36.5 KIDNEYS AND URETERS: Unremarkable. No hydronephrosis. No solid mass. VASCULATURE: Unremarkable. No aortic aneurysm. BOWEL: Moderate dilatation of proximal and mid small bowel, finding identified on prior CT scans. No mechanical point of obstruction identified. Distal ileum, terminal ileum, ileocecal valve region are unremarkable. Diverticulosis without an acute inflammatory component or other associated pathologic process. APPENDIX: Normal appendix. PERITONEUM: Unremarkable. No free fluid. No free air. LYMPH NODES: Unremarkable. No enlarged lymph nodes. BLADDER: Unremarkable. REPRODUCTIVE: Unremarkable. BONES: No acute fracture. OTHER FINDINGS: None. IMPRESSION: Dilated small bowel likely enteritis. No mechanical obstruction identified. Additional benign and/or incidental findings described above.
--- NOTE | 2018-01-30 13:15 | RAD ---
HISTORY: COMPARISON: 09/19/2017. TECHNIQUE: Chest PA and lateral FINDINGS: LINES AND TUBES: None. LUNG AND PLEURA: The lungs are well inflated and clear. There is mild pulmonary venous congestion. No focal consolidation. No pleural effusion or pneumothorax. HEART AND MEDIASTINUM: There is mild cardiomegaly. The hilar and mediastinal contours are within normal limits. SKELETAL STRUCTURES: The bony structures are within normal limits for the patient's age. VISUALIZED UPPER ABDOMEN: Normal. OTHER FINDINGS: None. IMPRESSION: No active pulmonary disease.
[2018-01-30] MEDS ORDERED: Piperacillin/Tazobact 3.375 GM in Sodium Chloride 0.9% 100 ML IVPB STA (13:22)
[2018-01-30] MEDS ORDERED: Piperacillin/Tazobact 3.375 gm Inj IVPB ONE (14:19)
[2018-01-30] MEDS ORDERED: Morphine 4 MG/ML VIAL ONE (14:37)
[2018-01-30] MEDS ORDERED: Morphine 4 MG/ML VIAL IV STA (14:40)
[2018-01-30] MEDS ORDERED: Pantoprazole 40 mg EC Tab PO SCH (15:30)
[2018-01-30] MEDS ORDERED: Sodium Chloride 0.9% 1,000 ML IV SCH (15:30)
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
[2018-01-30 16:34] LABS: LIPASE 499 U/L (23-300)
[2018-01-30 17:12] LABS: BARBITURATES, UR POSITIVE (NEGATIVE); BENZODIAZEPINES, UR NEGATIVE (NEGATIVE); OPIATES, UR POSITIVE (NEGATIVE); PHENCYCLIDINE, UR NEGATIVE (NEGATIVE)
[2018-01-30 17:15] VITALS: RESP 20
[2018-01-30] MEDS ORDERED: Ciprofloxacin 400mg/200ml D5W 400 MG/200 ML BAG IVPB SCH (20:11)
[2018-01-30] MEDS ORDERED: metroNIDAZOLE 500mg/100ml NS 100 ML IVPB SCH (20:30)
[2018-01-30] MEDS: Dextrose 5%/0.45% NS 1,000 ML IV SCH ×2 (21:15→21:40)
[2018-01-30 21:16] LABS: GAMMA GLUTAMYL TRANSPEPTIDASE 36 U/L (8-78)
[2018-01-30] MEDS: Ciprofloxacin 400mg/200ml D5W 400 MG/200 ML BAG IVPB SCH (22:25)
[2018-01-31] MEDS: Dextrose 5%/0.45% NS 1,000 ML IV SCH ×2 (04:20→08:19)
[2018-01-31] MEDS: metroNIDAZOLE 500mg/100ml NS 100 ML IVPB SCH ×2 (05:17→12:32)
[2018-01-31 06:29] LABS: BASO % 0.3 % (0.0-2.0); EOS # 0.3 K/uL (0.0-0.7); HEMOGLOBIN 16.7 g/dL (12.0-18.0); LYMPH % 14.3 % (20.0-40.0); MEAN CELL VOLUME 90.9 fl (80.0-94.0); MEAN PLATELET VOLUME 9.1 fl (7.2-11.7); MONO % 14.6 % (0.0-10.0); NEUT # 4.7 K/uL (1.8-7.0); NEUT % 66.8 % (50.0-75.0); NRBC % 0.1 % (0.0-0.0); RBC 5.38 Mil/uL (4.40-5.90); RED CELL DISTRIBUTION WIDTH 13.8 % (11.5-14.5)
[2018-01-31 06:38] LABS: ALB/GLOB RATIO 1.2 (1.0-2.1); ALBUMIN 3.8 g/dL (3.5-5.0); ALT/SGPT 54 U/L (21-72); AST/SGOT 51 U/L (17-59); BLOOD UREA NITROGEN 11 mg/dl (9-20); CALCIUM 8.4 mg/dL (8.4-10.2); GFR AFRICAN-AMERICAN > 60; GFR NON-AFRICAN AMERICAN > 60
[2018-01-31 07:59] VITALS: BP 134/82; PULSE 79; TEMP 98.5; O2SAT 95
[2018-01-31] MEDS: Ciprofloxacin 400mg/200ml D5W 400 MG/200 ML BAG IVPB SCH (08:19)
[2018-01-31] MEDS ORDERED: metroNIDAZOLE 500mg/100ml NS 100 ML IVPB SCH (09:00)
[2018-01-31] MEDS ORDERED: Enoxaparin 40 mg Syringe SC SCH (09:00)
[2018-01-31] MEDS ORDERED: Ciprofloxacin 400mg/200ml D5W 400 MG/200 ML BAG IVPB SCH (09:00)
[2018-01-31] MEDS ORDERED: Emtricitabine-Tenofovir 200 mg-300 mg Tab PO SCH (09:00)
[2018-01-31] MEDS ORDERED: Lactated Ringer's 1,000 ML IV SCH (09:15)
--- NOTE | 2018-01-31 09:49 | CP.PCM.PN ---
Subjective - Date & Time of Evaluation Date of Evaluation: 01/31/18 Time of Evaluation: 09:15 - Subjective Subjective: Patient seen and examined this morning at bedside, NAD, sleeping comfortably. Patient is AAOx3, reports 1 normal BM this morning, urinating w/o any difficulties, NPO, denies any nausea, vomiting, f/c/d overnight. Patient reports improved pain today. Objective - Vital Signs/Intake and Output Vital Signs (last 24 hours): Temp Pulse Resp BP Pulse Ox 98.5 F 79 20 134/82 95 01/31/18 07:59 01/31/18 08:20 01/31/18 07:59 01/31/18 08:20 01/31/18 07:59 - Medications Medications: Current Medications Dolutegravir Sodium (Tivicay) 50 mg PO DAILY DIVYA PRN Reason: Protocol Last Admin: 01/31/18 08:20 Dose: 50 mg Emtricitabine/Tenofovir (Truvada 200 Mg-300 Mg) 1 tab PO DAILY DIVYA PRN Reason: Protocol Last Admin: 01/31/18 08:20 Dose: 1 tab Enoxaparin Sodium (Lovenox) 40 mg SC DAILY DIVYA PRN Reason: Protocol Last Admin: 01/31/18 08:21 Dose: 40 mg Famotidine (Pepcid) 20 mg PO BID PRN PRN Reason: Heartburn Last Admin: 01/31/18 08:20 Dose: 20 mg Dextrose/Sodium Chloride (Dextrose 5%/0.45% Ns 1000 Ml) 1,000 mls @ 150 mls/hr IV .Q6H40M [facility] Last Admin: 01/31/18 08:19 Dose: 150 mls/hr Ciprofloxacin (Cipro 400mg/200ml Dsw) 400 mg in 200 mls @ 200 mls/hr IVPB Q12H DIVYA PRN Reason: Protocol Last Admin: 01/31/18 08:19 Dose: 200 mls/hr Metronidazole (Flagyl 500mg/100ml Ns) 100 mls @ 100 mls/hr IVPB Q8H DIVYA PRN Reason: Protocol Last Admin: 01/31/18 05:17 Dose: 100 mls/hr Lactated Ringer's (Lactated Ringer's) 1,000 mls @ 1,000 mls/hr IV .Q1H DIVYA Last Admin: 01/31/18 09:41 Dose: 1,000 mls/hr Lisinopril (Zestril) 20 mg PO DAILY DIVYA Last Admin: 01/31/18 08:20 Dose: 20 mg Morphine Sulfate (Morphine) 1 mg IVP Q6 PRN PRN Reason: Pain, moderate (4-7) Morphine Sulfate (Morphine) 2 mg IVP Q4 PRN PRN Reason: Pain, severe (8-10) Last Admin: 01/31/18 07:14 Dose: 2 mg Ondansetron HCl (Zofran Inj) 4 mg IVP Q6 PRN PRN Reason: Nausea/Vomiting Last Admin: 01/31/18 06:37 Dose: 4 mg - Labs Labs: 01/31/18 06:00 01/31/18 06:00 - Constitutional Appears: No Acute Distress - Head Exam Head Exam: NORMAL INSPECTION - Eye Exam Eye Exam: Normal appearance Pupil Exam: NORMAL ACCOMODATION - ENT Exam ENT Exam: Mucous Membranes Moist - Neck Exam Neck Exam: Normal Inspection - Respiratory Exam Respiratory Exam: Clear to Ausculation Bilateral, NORMAL BREATHING PATTERN - Cardiovascular Exam Cardiovascular Exam: REGULAR RHYTHM - GI/Abdominal Exam GI & Abdominal Exam: Soft, Normal Bowel Sounds. absent: Distended, Guarding, Rigid, Tenderness, Pulsatile Mass, Rebound - Extremities Exam Extremities Exam: Normal Capillary Refill, Normal Inspection - Back Exam Back Exam: NORMAL INSPECTION. absent: CVA tenderness (L), CVA tenderness (R) - Neurological Exam Neurological Exam: Alert, Awake, CN II-XII Intact, Oriented x3 - Psychiatric Exam Psychiatric exam: Normal Affect - Skin Skin Exam: Normal Color Assessment and Plan - Assessment and Plan (Free Text) Assessment: A/P: 47 y/0 M with PMH of HIV (01/21/18 CD4 431), HLD, GERD, peripheral neuropathy, lymphoma (16 years ago) and pyelonephritis presents to ED c/o worsening left lower lateral abdominal pain x 2 weeks. Left Lower abdominal pain - Possible Enteritis vs Colitis - Afebrile - WBC 7.0 - UA negative for Nitrate or Leuk - CXR 01/30: No acute pulm disease - EKG 01/30: Normal sinus rhythm, Cannot rule out Anterior infarct, age undetermined - CT w/ Cont: 01/30/18: enteritis w/o obstruction - Zofran PRN - Pain Management - IVF, Will advance to liquid diet today Bandemia with Elevated wbc - WBC: 11.3 on admission - Band neut % 14 on admission - WBC 7.0 today, improved - CXR 01/30: No acute pulm disease - EKG 01/30: Normal sinus rhythm, Cannot rule out Anterior infarct, age undetermined - S/p Zosyn in ER - Start Ciprofloxacin 400mg Q12H (01/31) - Start Flagyl 500 Q8H (01/31) - Follow up blood Cx HIV - 01/21/18: CD4 431 - C/w Home medications: Tivicay 50 MG Tablet 1 tablet Orally Once a day - Truvada 200-300 MG Tablet 1 tablet Orally Once a day Elevated Total Bilirubin - Total Bili 01/30: 2.4 - Total Bili 01/31: 1.6 - GGT 36 - Utox: + Opiates, Barbitu, and Marijuana Elevated Lipase, unknown etiology - Lipase 499 (01/31) - Utox: + Opiates, Barbitu, and Marijuana - IVF - Follow up next lab Gastritis - C/w Home medication; Pepcid HTN - Lisinopril 20mg PO daily 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
--- NOTE | 2018-01-31 11:01 | CARD ---
APPROVED REPORT EKG Measurement Heart [id number] <Conclusion> Normal sinus rhythm Cannot rule out Anterior infarct, age undetermined Abnormal ECG
--- NOTE | 2018-01-31 13:31 | CP.PCM.DIS ---
Provider - Provider Date of Admission: 01/30/18 14:19 Attending physician: Sera Davila MD Primary care physician: Dr. Bradford, Consults: None Time Spent in preparation of Discharge (in minutes): 40 Diagnosis - Discharge Diagnosis (1) Enteritis Status: Acute (2) Abdominal pain Status: Acute Hospital Course - Lab Results Lab Results: Most Recent Lab Values WBC 7.0 K/uL (4.8-10.8) 01/31/18 06:00 RBC 5.38 Mil/uL (4.40-5.90) 01/31/18 06:00 Hgb 16.7 g/dL (12.0-18.0) 01/31/18 06:00 Hct 48.9 % (35.0-51.0) 01/31/18 06:00 MCV 90.9 fl (80.0-94.0) 01/31/18 06:00 MCH 31.0 pg (27.0-31.0) 01/31/18 06:00 MCHC 34.0 g/dL (33.0-37.0) 01/31/18 06:00 RDW 13.8 % (11.5-14.5) 01/31/18 06:00 Plt Count 156 K/uL (130-400) 01/31/18 06:00 MPV 9.1 fl (7.2-11.7) 01/31/18 06:00 Neut % (Auto) 66.8 % (50.0-75.0) 01/31/18 06:00 Lymph % (Auto) 14.3 % (20.0-40.0) L 01/31/18 06:00 [place] % (Auto) 14.6 % (0.0-10.0) H 01/31/18 06:00 Eos % (Auto) 4.0 % (0.0-4.0) 01/31/18 06:00 Baso % (Auto) 0.3 % (0.0-2.0) 01/31/18 06:00 Neut # (Auto) 4.7 K/uL (1.8-7.0) 01/31/18 06:00 Lymph # (Auto) 1.0 K/uL (1.0-4.3) 01/31/18 06:00 [place] # (Auto) 1.0 K/uL (0.0-0.8) H 01/31/18 06:00 Eos # (Auto) 0.3 K/uL (0.0-0.7) 01/31/18 06:00 Baso # (Auto) 0.0 K/uL (0.0-0.2) 01/31/18 06:00 Neutrophils % (Manual) 76 % (42-75) H 01/30/18 10:45 Band Neutrophils % 14 % (0-2) H* 01/30/18 10:45 Lymphocytes % (Manual) 4 % (20-50) L 01/30/18 10:45 Monocytes % (Manual) 6 % (0-10) 01/30/18 10:45 Platelet Estimate Normal (NORMAL) 01/30/18 10:45 RBC Morphology Normal (NORMAL) 01/30/18 10:45 Sodium 140 mmol/l (132-148) 01/31/18 06:00 Potassium 3.6 MMOL/L (3.6-5.0) 01/31/18 06:00 Chloride 104 mmol/L (98-107) 01/31/18 06:00 Carbon Dioxide 25 mmol/L (22-30) 01/31/18 06:00 Anion Gap 15 (10-20) 01/31/18 06:00 BUN 11 mg/dl (9-20) 01/31/18 06:00 Creatinine 0.7 mg/dl (0.8-1.5) L 01/31/18 06:00 Est GFR ( Amer) > 60 01/31/18 06:00 Est GFR (Non-Af Amer) > 60 01/31/18 06:00 Random Glucose 103 mg/dL (75-110) 01/31/18 06:00 Calcium 8.4 mg/dL (8.4-10.2) 01/31/18 06:00 Total Bilirubin 1.6 mg/dl (0.2-1.3) H 01/31/18 06:00 GGT 36 U/L (8-78) 01/30/18 16:00 AST 51 U/L (17-59) 01/31/18 06:00 ALT 54 U/L (21-72) 01/31/18 06:00 Alkaline Phosphatase 66 U/L (38-126) 01/31/18 06:00 Troponin I < 0.0120 ng/mL (0.00-0.120) 01/30/18 10:45 Total Protein 6.9 G/DL (6.3-8.2) 01/31/18 06:00 Albumin 3.8 g/dL (3.5-5.0) 01/31/18 06:00 Globulin 3.1 gm/dL (2.2-3.9) 01/31/18 06:00 Albumin/Globulin Ratio 1.2 (1.0-2.1) 01/31/18 06:00 Lipase 499 U/L (23-300) H 01/30/18 16:00 Procalcitonin 0.12 NG/ML (0.19-0.49) L 01/30/18 16:00 Urine Color Bhavana (YELLOW) 01/30/18 10:52 Urine Clarity Cloudy (Clear) 01/30/18 10:52 Urine pH 5.0 (5.0-8.0) 01/30/18 10:52 Ur Specific [place] 1.029 (1.003-1.030) 01/30/18 10:52 Urine Protein >=500 mg/dL (NEGATIVE) 01/30/18 10:52 Urine Glucose (UA) Neg mg/dL (Normal) 01/30/18 10:52 Urine Ketones Negative mg/dL (NEGATIVE) 01/30/18 10:52 Urine Blood Negative (NEGATIVE) 01/30/18 10:52 Urine Nitrate Negative (NEGATIVE) 01/30/18 10:52 Urine Bilirubin Negative (NEGATIVE) 01/30/18 10:52 Urine Urobilinogen 0.2-1.0 mg/dL (0.2-1.0) 01/30/18 10:52 Ur Leukocyte Esterase Neg [place]onda/uL (Negative) 01/30/18 10:52 Urine RBC (Auto) 2 /hpf (0-3) 01/30/18 10:52 Urine Microscopic WBC 3 /hpf (0-5) 01/30/18 10:52 Ur Squamous Epith Cells 1 /hpf (0-5) 01/30/18 10:52 Urine Bacteria Rare (<OCC) 01/30/18 10:52 Hyaline Casts 0-2 /hpf (0-2) 01/30/18 10:52 Granular Casts (Auto) 1 /lpf (0-1) 01/30/18 10:52 Urine Opiates Screen Positive (NEGATIVE) H 01/30/18 16:30 Urine Methadone Screen Negative (NEGATIVE) 01/30/18 16:30 Ur Barbiturates Screen Positive (NEGATIVE) H 01/30/18 16:30 Ur Phencyclidine Scrn Negative (NEGATIVE) 01/30/18 16:30 Ur Amphetamines Screen Negative (NEGATIVE) 01/30/18 16:30 U Benzodiazepines Scrn Negative (NEGATIVE) 01/30/18 16:30 U Oth Cocaine Metabols Negative (NEGATIVE) 01/30/18 16:30 U Cannabinoids Screen Positive (NEGATIVE) H 01/30/18 16:30 - Hospital Course Hospital Course: 47 yo ,m, PMhx/o HIV (01/21/18 CD4 431), HLD, GERD, peripheral neuropathy, lymphoma (16 years ago) presents to ED c/o worsening left lower lateral abdominal pain x 2 weeks. After admission, Chest/abdo/pelvic CT with Cont: Enteritis, no obstruction, CXR 01/30: No acute pulm disease, EKG 01/30: Normal sinus rhythm, Cannot rule out Anterior infarct, age undetermined. Patient was kept NPO, S/p Zosyn and satrted on Cipro and Flagyl. Utox +, Patient's pain improved and tolerating PO diet, Normal BM this morning, denies nausea, vomiting or abdominal pain. Patient discharged home with instruction to follow up with PMD. Discharge Exam - Head Exam Head Exam: NORMAL INSPECTION - Eye Exam Eye Exam: Normal appearance - ENT Exam ENT Exam: Mucous Membranes Moist - Respiratory Exam Respiratory Exam: Clear to PA & Lateral, NORMAL BREATHING PATTERN, UNREMARKABLE - Cardiovascular Exam Cardiovascular Exam: REGULAR RHYTHM - GI/Abdominal Exam GI & Abdominal Exam: Normal Bowel Sounds, Soft. absent: Distended, Guarding, Rebound, Rigid, Tenderness - Extremities Exam Extremities exam: normal capillary refill - Neurological Exam Neurological exam: Alert, CN II-XII Intact, Oriented x3, Reflexes Normal - Psychiatric Exam Psychiatric exam: Normal Affect - Skin Skin Exam: Dry, Intact, Normal Color, Warm Discharge Plan - Follow Up Plan Condition: GOOD Disposition: HOME/ ROUTINE Instructions: Acute Abdomen (Belly Pain), Adult (DC), Chest Pain (DC) Additional Instructions: follow up with primary MD 1 week has prescriptions for antibiotic from PMD Referrals: Raiza Bradford MD [Family Provider] -
== END 2018-01-31 13:40 | disposition home or self-care (01) ==
LOC: H.ER 10:14 → H.ERHOLD 14:19 → H.MEDSURG1 16:27
PROVIDERS: ADMIT Family Medicine Geriatric Medicine; ATTEND Family Medicine Geriatric Medicine
DX: K52.89 Other specified noninfective gastroenteritis and colitis (principal); K29.70 Gastritis, unspecified, without bleeding; K21.9 Gastro-esophageal reflux disease without esophagitis; G89.29 Other chronic pain; F12.90 Cannabis use, unspecified, uncomplicated; D72.825 Bandemia; I10 Essential (primary) hypertension; E78.5 Hyperlipidemia, unspecified; E78.00 Pure hypercholesterolemia, unspecified; Z21 Asymptomatic human immunodeficiency virus [HIV] infection status; R74.8 Abnormal levels of other serum enzymes; Z85.72 Personal history of non-Hodgkin lymphomas; Z87.440 Personal history of urinary (tract) infections
CPT/HCPCS: 36415; 71046; 71260; 74177; 80053; 81003; 82977; 83690; 84145; 84484; 85025; 85027; 87040; 93005; 96360; 96365; 99285; G0378; G0480; J0744; J1650; J2270; J2405; J2543; J7030; J7042; J7120; Q9967